=== PATIENT | male | born 1985 | race Caucasian/White ===

== ENCOUNTER 2019-08-26 10:25 | Emergency (ER) | payer MEDICAID, OTHER ==
[2019-08-26 11:04] LABS: ABS Basophils 0.1 10^3/ul (0-0.2); ABS Eosinophils 0.1 10^3/ul (0-0.6); ABS Monocytes 0.6 10^3/ul (0-0.8); ABS Neutrophils 3.3 10^3/ul (1.5-7.7); Eosinophil % 2.3 %; Hematocrit 43 % (42-52); Hemoglobin 14.8 g/dL (14.0-18.0); Lymphocyte % 33.5 %; Mean Corpuscular HGB Conc 34 g/dL (31-36); Mean Corpuscular Hemoglobin 28 pg (27-31); Mean Corpuscular Volume 81 fL (80-94); Nucleated Red Blood Cells % 0.1; Platelet Count 243 10^3/uL (150-450); Red Blood Count 5.36 10^6 /uL (4.18-5.48); Red Cell Distribution Width 14 % (10-15); White Blood Count 6.1 10^3/uL (3.5-10.8)
[2019-08-26 11:41] LABS: ALT 26 U/L (7-52); AST 18 U/L (13-39); Albumin 4.1 g/dL (3.2-5.2); Albumin/Globulin Ratio 1.3 (1-3); Alkaline Phosphatase 63 U/L (34-104); Anion Gap 7 mmol/L (2-11); Blood Urea Nitrogen 16 mg/dL (6-24); CO2 Carbon Dioxide 25 mmol/L (22-32); Calcium 9.3 mg/dL (8.6-10.3); Chloride 107 mmol/L (101-111); EGFR African American 104.1 (>60); EGFR Non-African American 86.1 (>60); Globulin 3.1 g/dL (2-4); Glucose 146 mg/dL (70-100); Potassium 3.9 mmol/L (3.5-5.0); Sodium 139 mmol/L (135-145); Total Protein 7.2 g/dL (6.4-8.9)
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
[2019-08-26 11:50] LABS: Alcohol < 10 mg/dL (<10); Salicylate < 2.50 mg/dL (<30)
[2019-08-26 11:51] LABS: Acetaminophen < 15 mcg/mL
[2019-08-26 18:30] VITALS: BP 117/78
== END 2019-08-26 18:28 | disposition home or self-care (01) ==
LOC: ED 10:25
DX: F63.9 Impulse disorder, unspecified (principal); F79 Unspecified intellectual disabilities; R47.9 Unspecified speech disturbances; H91.90 Unspecified hearing loss, unspecified ear
CPT/HCPCS: 36415; 80053; 80320; 80329; 84443; 85025; 99284; G0480

== ENCOUNTER 2022-06-06 16:02 | Inpatient (IN) ==
[2022-06-06] MEDS ORDERED: Morphine 4 MG/ML VIAL (1 ml) IV ONE (17:07)
[2022-06-06] MEDS ORDERED: Lactated Ringers 1000 ml BAG 1,000 ML IV ONE (17:08)
[2022-06-06 17:25] LABS: ABS Eosinophils 0.1 10^3/ul (0-0.6); ABS Lymphocytes 0.5 10^3/ul (1.0-4.8); ABS Monocytes 0.6 10^3/ul (0-0.8); ABS Neutrophils 2.8 10^3/ul (1.5-7.7); Eosinophil % 2.2 %; Hematocrit 35 % (42-52); Hemoglobin 11.1 g/dL (14.0-18.0); Lymphocyte % 13.1 %; Mean Corpuscular HGB Conc 32 g/dL (31-36); Mean Corpuscular Hemoglobin 25 pg (27-31); Mean Corpuscular Volume 79 fL (80-94); Mean Platelet Volume 8.9 fL (7.4-10.4); Platelet Count 280 10^3/uL (150-450); Red Cell Distribution Width 15 % (10-15); White Blood Count 4.1 10^3/uL (3.5-10.8)
[2022-06-06] MEDS ORDERED: Ondansetron 4 mg VIAL 2 MG/ML 2 ml VIAL IV ONE (17:52)
[2022-06-06 18:13] LABS: Albumin/Globulin Ratio 1.1 (1-3); C Reactive Protein 47.04 mg/L (<8.01); Calcium 11.1 mg/dL (8.6-10.3); Globulin 3.6 g/dL (2-4); Potassium 4.7 mmol/L (3.5-5.0); Total Bilirubin 0.5 mg/dL (0.2-1.0); Total Protein 7.6 g/dL (6.4-8.9); eGFR CKD-EPI 49.4 (>60)
[2022-06-06] MEDS ORDERED: Iohexol 350 (CONTRAST) 500 ML MDV IV ONE (18:28)
[2022-06-06] MEDS ORDERED: HYDROmorphone 1 MG/1 ML SYRINGE IV ONE (18:35)
[2022-06-06] MEDS ORDERED: Iodixanol (CONTRAST) 320 MG/ML 100 ML SDV IV ONE (20:31)
[2022-06-06 20:56] LABS: HCG Pregnancy 304.55 mIU/mL; Uric Acid 11.4 mg/dL (4.4-7.6)
[2022-06-06 21:23] LABS: Erythrocyte Sed Rate 102 mm/Hr (0-14)
[2022-06-06] MEDS ORDERED: Morphine 2 MG/ML SYRINGE IV PRN (21:48)
[2022-06-06] MEDS ORDERED: Lactated Ringers 1000 ml BAG 1,000 ML IV SCH (22:00)
[2022-06-07 06:36] LABS: ABS Eosinophils 0.1 10^3/ul (0-0.6); ABS Lymphocytes 0.6 10^3/ul (1.0-4.8); ABS Monocytes 0.8 10^3/ul (0-0.8); ABS Neutrophils 2.6 10^3/ul (1.5-7.7); Hematocrit 30 % (42-52); Hemoglobin 9.7 g/dL (14.0-18.0); Lymphocyte % 14.4 %; Mean Corpuscular HGB Conc 32 g/dL (31-36); Mean Corpuscular Hemoglobin 25 pg (27-31); Mean Corpuscular Volume 79 fL (80-94); Mean Platelet Volume 9.2 fL (7.4-10.4); Platelet Count 264 10^3/uL (150-450); Red Blood Count 3.84 10^6 /uL (4.18-5.48); Red Cell Distribution Width 15 % (10-15); White Blood Count 4.1 10^3/uL (3.5-10.8)
[2022-06-07 07:01] LABS: Calcium 10.1 mg/dL (8.6-10.3); Magnesium 1.5 mg/dL (1.9-2.7); Phosphorus 5.5 mg/dL (2.5-5.0); Potassium 4.9 mmol/L (3.5-5.0); eGFR CKD-EPI 47.8 (>60)
[2022-06-07] MEDS ORDERED: Lactated Ringers 1000 ml BAG 1,000 ML IV SCH (07:57)
[2022-06-07 11:32] LABS: INR 1.11 (0.89-1.11)
[2022-06-07] MEDS ORDERED: fentaNYL 100 mcg/2 ml 50 MCG/ML VIAL ONE (13:30)
[2022-06-07] MEDS ORDERED: Dextrose 50% VIAL 50 ml IV PRN (16:50)
[2022-06-07] MEDS: D5LR 1000 ml BAG 1,000 ML IV SCH (17:47)
[2022-06-07] MEDS ORDERED: Pantoprazole VIAL 40 MG VIAL IV SCH (18:00)
[2022-06-07 18:28] LABS: Hematocrit 29 % (42-52); Hemoglobin 9.1 g/dL (14.0-18.0)
[2022-06-07] MEDS: Pantoprazole VIAL 40 MG VIAL IV SCH (18:29)
[2022-06-07] MEDS: Acetaminophen IV 1 GM/100ML 1,000 MG/100 ML BAG IV PRN (21:01)
[2022-06-08] MEDS: D5LR 1000 ml BAG 1,000 ML IV SCH ×4 (00:28→22:53)
[2022-06-08] MEDS: Ondansetron 4 mg VIAL 2 MG/ML 2 ml VIAL IV PRN (03:54)
[2022-06-08 06:02] LABS: ABS Lymphocytes 0.3 10^3/ul (1.0-4.8); ABS Neutrophils 4.5 10^3/ul (1.5-7.7); Eosinophil % 0.3 %; Hematocrit 28 % (42-52); Hemoglobin 9.1 g/dL (14.0-18.0); Lymphocyte % 5.9 %; Mean Corpuscular HGB Conc 32 g/dL (31-36); Mean Corpuscular Hemoglobin 25 pg (27-31); Mean Corpuscular Volume 78 fL (80-94); Mean Platelet Volume 8.7 fL (7.4-10.4); Platelet Count 257 10^3/uL (150-450); Red Blood Count 3.62 10^6 /uL (4.18-5.48); Red Cell Distribution Width 14 % (10-15); White Blood Count 5.9 10^3/uL (3.5-10.8)
[2022-06-08 06:03] LABS: INR 1.3 (0.89-1.11)
[2022-06-08] MEDS: Acetaminophen IV 1 GM/100ML 1,000 MG/100 ML BAG IV PRN ×2 (06:06→13:19)
[2022-06-08 06:16] LABS: Anion Gap 8 mmol/L (2-11); Blood Urea Nitrogen 35 mg/dL (6-24); CO2 Carbon Dioxide 24 mmol/L (22-32); Calcium 9.5 mg/dL (8.6-10.3); Chloride 108 mmol/L (101-111); Glucose 115 mg/dL (70-100); Magnesium 1.5 mg/dL (1.9-2.7); Phosphorus 4.7 mg/dL (2.5-5.0); Potassium 4.5 mmol/L (3.5-5.0); Sodium 140 mmol/L (135-145); Total Iron Binding Capacity 216 mcg/dL (250-450); Transferrin 154 mg/dL (203-362); eGFR CKD-EPI 47.8 (>60)
[2022-06-08 06:22] LABS: % Iron Saturation 9 % (15-55); Iron < 20 ug/dL (50-212); Unsaturated Iron Binding 196 ug/dL
[2022-06-08 06:36] LABS: Ferritin 255.1 ng/mL (24-336)
[2022-06-08 06:37] LABS: LDH 1827 U/L (140-271)
[2022-06-08 06:40] LABS: Folate 7.64 ng/mL (5.90-24.80)
[2022-06-08 06:41] LABS: Vitamin B12 458 pg/mL (180-914)
[2022-06-08] MEDS ORDERED: Magnesium Sulf 4 GM/100 ML IV 4,000 MG/100 ML BAG IVPB ONE (06:56)
[2022-06-08] MEDS: Pantoprazole VIAL 40 MG VIAL IV SCH (08:55)
[2022-06-09] MEDS: D5LR 1000 ml BAG 1,000 ML IV SCH ×2 (05:42→12:42)
[2022-06-09 06:23] LABS: ABS Lymphocytes 0.6 10^3/ul (1.0-4.8); ABS Monocytes 0.9 10^3/ul (0-0.8); ABS Neutrophils 4.5 10^3/ul (1.5-7.7); Eosinophil % 0.4 %; Hematocrit 27 % (42-52); Hemoglobin 8.5 g/dL (14.0-18.0); Lymphocyte % 9.6 %; Mean Corpuscular HGB Conc 32 g/dL (31-36); Mean Corpuscular Hemoglobin 25 pg (27-31); Mean Corpuscular Volume 80 fL (80-94); Mean Platelet Volume 8.9 fL (7.4-10.4); Nucleated Red Blood Cells % 0.1; Platelet Count 237 10^3/uL (150-450); Red Blood Count 3.38 10^6 /uL (4.18-5.48); Red Cell Distribution Width 15 % (10-15)
[2022-06-09 06:36] LABS: Calcium 9.3 mg/dL (8.6-10.3); Magnesium 1.4 mg/dL (1.9-2.7); eGFR CKD-EPI 48.8 (>60)
[2022-06-09] MEDS ORDERED: Magnesium Sulfate IV 3 GM in NS 0.9% 100 ml BAG 100 ML IVPB ONE (07:26)
[2022-06-09] MEDS ORDERED: Pantoprazole VIAL 40 MG VIAL IV SCH (09:00)
[2022-06-09] MEDS: Pantoprazole VIAL 40 MG VIAL IV SCH ×2 (09:01→20:00)
[2022-06-09] MEDS ORDERED: LORazepam 2 mg VIAL 1 ml IV PUSH ONE ×2 (10:01)
[2022-06-09] MEDS ORDERED: Lorazepam PYXIS KEY PRN (10:01)
[2022-06-09 12:50] LABS: Uric Acid 9.9 mg/dL (4.4-7.6)
[2022-06-09 13:11] LABS: Hematocrit 28 % (42-52); Hemoglobin 8.9 g/dL (14.0-18.0)
[2022-06-09] MEDS ORDERED: Rasburicase 1.5 MG VIAL(NF) IVPB ONE (17:03)
[2022-06-09] MEDS ORDERED: Rasburicase 3 MG in NS 0.9% 50 ML 48 ML IVPB ONE (18:00)
[2022-06-10 07:51] LABS: ABS Eosinophils 0.1 10^3/ul (0-0.6); ABS Lymphocytes 0.5 10^3/ul (1.0-4.8); ABS Monocytes 0.7 10^3/ul (0-0.8); ABS Neutrophils 3.1 10^3/ul (1.5-7.7); Eosinophil % 1.4 %; Hematocrit 27 % (42-52); Hemoglobin 8.7 g/dL (14.0-18.0); Mean Corpuscular HGB Conc 32 g/dL (31-36); Mean Corpuscular Hemoglobin 26 pg (27-31); Mean Corpuscular Volume 79 fL (80-94); Mean Platelet Volume 9.4 fL (7.4-10.4); Platelet Count 230 10^3/uL (150-450); Red Blood Count 3.42 10^6 /uL (4.18-5.48); Red Cell Distribution Width 15 % (10-15); White Blood Count 4.4 10^3/uL (3.5-10.8)
[2022-06-10 08:22] LABS: Calcium 9.2 mg/dL (8.6-10.3); Magnesium 1.5 mg/dL (1.9-2.7); Phosphorus 3.3 mg/dL (2.5-5.0); Potassium 4.3 mmol/L (3.5-5.0); Uric Acid 4.3 mg/dL (4.4-7.6); eGFR CKD-EPI 51.8 (>60)
[2022-06-10] MEDS: Pantoprazole VIAL 40 MG VIAL IV SCH ×2 (09:55→23:44)
[2022-06-10] MEDS: Polyethylene Glycol 3350 17 GM PACKET PO SCH ×2 (15:00→23:44)
[2022-06-10] MEDS ORDERED: Iron Sucrose 200 MG in NS 0.9% 100 ml BAG 100 ML IVPB ONE (16:00)
[2022-06-10] MEDS: Ondansetron 4 mg VIAL 2 MG/ML 2 ml VIAL IV PRN (17:41)
[2022-06-10] MEDS: Acetaminophen IV 1 GM/100ML 1,000 MG/100 ML BAG IV PRN (23:44)
[2022-06-11] MEDS ORDERED: Magnesium Sulf 4 GM/100 ML IV 4,000 MG/100 ML BAG IVPB ONE (07:31)
[2022-06-11] MEDS: Polyethylene Glycol 3350 17 GM PACKET PO SCH ×2 (09:16→20:37)
[2022-06-11] MEDS: Pantoprazole VIAL 40 MG VIAL IV SCH ×2 (09:19→20:50)
[2022-06-11] MEDS: Ondansetron 4 mg VIAL 2 MG/ML 2 ml VIAL IV PRN (12:29)
[2022-06-11 12:30] LABS: Hematocrit 29 % (42-52); Hemoglobin 9.3 g/dL (14.0-18.0); Mean Corpuscular HGB Conc 32 g/dL (31-36); Mean Corpuscular Hemoglobin 25 pg (27-31); Mean Corpuscular Volume 79 fL (80-94); Mean Platelet Volume 9.1 fL (7.4-10.4); Platelet Count 298 10^3/uL (150-450); Red Blood Count 3.71 10^6 /uL (4.18-5.48); Red Cell Distribution Width 15 % (10-15); White Blood Count 4.5 10^3/uL (3.5-10.8)
[2022-06-11 12:52] LABS: Calcium 9.3 mg/dL (8.6-10.3); Magnesium 3.2 mg/dL (1.9-2.7); Phosphorus 3.9 mg/dL (2.5-5.0); Potassium 4.1 mmol/L (3.5-5.0); eGFR CKD-EPI 56.1 (>60)
[2022-06-11 23:25] LABS: Urine Color Yellow
[2022-06-11 23:26] LABS: Urine Appearance Clear; Urine Bilirubin Negative (Negative); Urine Blood Trace (Lysed) (Negative); Urine Glucose Negative (Negative); Urine Ketones 2+ (40mg/dL) (Negative); Urine Nitrite Negative (Negative); Urine Protein 1+ (30 mg/dL) (Negative); Urine Specific Gravity 1.018 (1.002-1.030); Urine Urobilinogen 0.2 (Negative) (Negative); Urine pH 5.5 (5.0-9.0)
[2022-06-11 23:42] LABS: Urine Bacteria 1+ (Absent); Urine Red Blood Cell Absent (Absent); Urine White Blood Cell Trace(0-5/hpf) (Absent)
[2022-06-12] MEDS ORDERED: Lactated Ringers 1000 ml BAG 1,000 ML IV SCH (06:00)
[2022-06-12 06:31] LABS: Calcium 8.8 mg/dL (8.6-10.3); Potassium 4.4 mmol/L (3.5-5.0); eGFR CKD-EPI 54.1 (>60)
[2022-06-12 06:52] LABS: ABS Eosinophils 0.1 10^3/ul (0-0.6); ABS Lymphocytes 0.5 10^3/ul (1.0-4.8); ABS Monocytes 0.6 10^3/ul (0-0.8); ABS Neutrophils 2.5 10^3/ul (1.5-7.7); Eosinophil % 3.4 %; Hematocrit 27 % (42-52); Hemoglobin 8.5 g/dL (14.0-18.0); Lymphocyte % 12.8 %; Mean Corpuscular HGB Conc 32 g/dL (31-36); Mean Corpuscular Hemoglobin 26 pg (27-31); Mean Corpuscular Volume 79 fL (80-94); Platelet Count 308 10^3/uL (150-450); Red Blood Count 3.35 10^6 /uL (4.18-5.48); Red Cell Distribution Width 15 % (10-15); White Blood Count 3.8 10^3/uL (3.5-10.8)
[2022-06-12 07:57] LABS: Phosphorus 3.6 mg/dL (2.5-5.0); Uric Acid 3.6 mg/dL (4.4-7.6)
[2022-06-12] MEDS: Polyethylene Glycol 3350 17 GM PACKET PO SCH ×2 (08:23→23:19)
[2022-06-12] MEDS: Pantoprazole VIAL 40 MG VIAL IV SCH ×2 (08:30→23:19)
[2022-06-12] MEDS ORDERED: Dextrose 50% VIAL 50 ml IV PRN (09:05)
[2022-06-12] MEDS ORDERED: Dexamethasone IV 4 MG/ML VIAL 1 ml VIAL ONE (10:54)
[2022-06-12] MEDS ORDERED: Succinylcholine 200 mg VIAL 20 mg/ml 10 ml VIAL (200 mg) ONE ×2 (10:54→11:03)
[2022-06-12] MEDS ORDERED: Lidocaine 2% PF 5 ML VIAL ONE (10:54)
[2022-06-12] MEDS ORDERED: Ondansetron 4 mg VIAL 2 MG/ML 2 ml VIAL ONE (10:54)
[2022-06-12] MEDS ORDERED: Propofol 10 MG/ML 20 ML BTL ONE (10:54)
[2022-06-12] MEDS ORDERED: Ondansetron 4 mg VIAL 2 MG/ML 2 ml VIAL IV PRN (10:58)
[2022-06-12] MEDS ORDERED: Naloxone 0.4 mg VIAL 0.4 mg/ml 1 ml VIAL IV PRN (10:58)
[2022-06-12] MEDS ORDERED: Rocuronium 50 mg VIAL 10 mg/ml 5 ml VIAL (50 mg) ONE (11:03)
[2022-06-12] MEDS ORDERED: Gadoteridol (CONTRAST) 279.3 MG/ML 10 ML IV ONE (12:35)
[2022-06-12] MEDS ORDERED: ceFAZolin 1 GM in Dextrose 0 GM/0 ML BAG ONE (12:37)
[2022-06-12] MEDS ORDERED: Acetaminophen IV 1 GM/100ML 1,000 MG/100 ML BAG IV ONE (12:39)
[2022-06-12] MEDS: Ondansetron 4 mg VIAL 2 MG/ML 2 ml VIAL IV PRN (23:11)
[2022-06-13] MEDS: Polyethylene Glycol 3350 17 GM PACKET PO SCH (11:47)
[2022-06-13 11:58] VITALS: BP 108/74
[2022-06-13] MEDS: Pantoprazole VIAL 40 MG VIAL IV SCH (12:26)
[2022-06-13] MEDS: Ondansetron 4 mg VIAL 2 MG/ML 2 ml VIAL IV PRN (12:26)
== END 2022-06-13 14:55 | disposition home or self-care (01) | DRG 500 ==
LOC: ED 16:02 → SUATTDRO 20:31 → EDHOLD 20:31 → MEDTELE 06-07 00:01 → SSU 06-12 16:58
PROVIDERS: ADMIT Internal Medicine; ATTEND Hospitalist
PROC: O.ANMRI (2022-06-12 12:00)

== ENCOUNTER 2022-06-29 03:08 | Inpatient (IN) ==
[2022-06-29 04:59] LABS: ALT 70 U/L (7-52); Albumin 2.2 g/dL (3.2-5.2); Albumin/Globulin Ratio 0.9 (1-3); Alkaline Phosphatase 186 U/L (35-149); Blood Urea Nitrogen 61 mg/dL (6-24); Chloride 108 mmol/L (101-111); Globulin 2.4 g/dL (2-4); Glucose 137 mg/dL (70-100); High Sens Troponin Baseline 23 pg/mL (<20); Lipase < 10 U/L (11.0-82.0); Total Protein 4.6 g/dL (6.4-8.9); eGFR CKD-EPI 36.8 (>60)
[2022-06-29 05:01] LABS: CO2 Carbon Dioxide 9 mmol/L (22-32); Sodium 133 mmol/L (135-145)
[2022-06-29] MEDS ORDERED: Lactated Ringers 1000 ml BAG 1,000 ML IV ONE ×3 (05:05→09:20)
[2022-06-29] MEDS ORDERED: Vancomycin 1,000 MG in NS 0.9% 250 ml 250 ML IVPB ONE (05:33)
[2022-06-29] MEDS ORDERED: Piperacillin/Tazobac ADVAN 3.375 GM in NS 0.9% 100 ml BAG 100 ML IV ONE (05:33)
[2022-06-29 05:49] LABS: PCO2 Arterial 25 mmHg (35-45); PO2 Arterial 108 mmHg (80-100)
[2022-06-29] MEDS: PHENYLEPHRINE DRIP IVPREMIX 50 MG/250 ML BAG IV SCH ×3 (05:58→11:34)
[2022-06-29] MEDS ORDERED: Hydrocortisone INJ 250 MG VIAL IV SCH (06:00)
[2022-06-29] MEDS ORDERED: Hydrocortisone INJ 100 MG/2ML 2 ML VIAL IV ONE (06:00)
[2022-06-29] MEDS ORDERED: Zosyn per Pharmacy NOTE FOLLOW UP SCH (06:00)
[2022-06-29] MEDS ORDERED: Norepinephrine 16MCG/ML BAGD5W 4,000 MCG/250 ML BAG IV SCH (06:00)
[2022-06-29] MEDS ORDERED: Vancomycin per Pharmacy 1 EA NOTE FOLLOW UP SCH (06:00)
[2022-06-29 06:02] LABS: INR 1.87 (0.88-1.18)
[2022-06-29 06:13] LABS: High Sensitivity Troponin 1 Hr 22 pg/mL (<20)
[2022-06-29] MEDS ORDERED: Hydrocortisone INJ 100 MG/2ML 2 ML VIAL IV SCH (06:20)
[2022-06-29 06:28] LABS: Albumin 2.1 g/dL (3.2-5.2); Albumin/Globulin Ratio 1.2 (1-3); C Reactive Protein 246.03 mg/L (<8.01); Globulin 1.7 g/dL (2-4); Magnesium 1.1 mg/dL (1.9-2.7); Phosphorus 5.2 mg/dL (2.5-5.0); Potassium 4.3 mmol/L (3.5-5.0); Total Bilirubin 0.5 mg/dL (0.2-1.0); Total Protein 3.8 g/dL (6.4-8.9); Uric Acid 2.4 mg/dL (4.4-7.6); eGFR CKD-EPI 35.2 (>60)
[2022-06-29] MEDS ORDERED: Magnesium Sulf 4 GM/100 ML IV 4,000 MG/100 ML BAG IVPB ONE (06:41)
[2022-06-29 06:58] LABS: ABS Lymphocytes 0.1 10^3/ul (1.0-4.8); Calcium 5.3 mg/dL (8.6-10.3); Eosinophil % 3.1 %; Hematocrit 26 % (42-52); Hemoglobin 8.5 g/dL (14.0-18.0); Lymphocyte % 93.1 %; Mean Corpuscular HGB Conc 33 g/dL (31-36); Mean Corpuscular Hemoglobin 25 pg (27-31); Mean Corpuscular Volume 76 fL (80-94); Mean Platelet Volume 9.4 fL (7.4-10.4); Nucleated Red Blood Cells % 2.7; Platelet Count 19 10^3/uL (150-450); Red Blood Count 3.38 10^6 /uL (4.18-5.48); Red Cell Distribution Width 14 % (10-15); White Blood Count 0.1 10^3/uL (3.5-10.8)
[2022-06-29] MEDS ORDERED: Ondansetron 4 mg VIAL 2 MG/ML 2 ml VIAL IV PRN (07:14)
[2022-06-29 07:41] LABS: Urine Appearance Slightly Cloudy; Urine Bilirubin Negative (Negative); Urine Blood Negative (Negative); Urine Color Yellow; Urine Glucose Negative (Negative); Urine Ketones Negative (Negative); Urine Nitrite Negative (Negative); Urine Protein 2+ (100 mg/dL) (Negative); Urine Urobilinogen 0.2 (Negative) (Negative); Urine pH 5.5 (5.0-9.0)
[2022-06-29] MEDS ORDERED: Succinylcholine 200 mg VIAL 20 mg/ml 10 ml VIAL (200 mg) ONE (07:46)
[2022-06-29 07:47] LABS: Urine Bacteria Absent (Absent); Urine Red Blood Cell 2+(6-10/hpf) (Absent); Urine Squamous Epithelial Cell Present (Absent); Urine White Blood Cell Trace(0-5/hpf) (Absent)
[2022-06-29] MEDS ORDERED: Propofol 10 mg/ml 100 ML BTL 100 ML ONE (07:50)
[2022-06-29] MEDS ORDERED: Norepinephrine 16MCG/ML BAGD5W 4,000 MCG/250 ML BAG IV ONE (07:50)
[2022-06-29] MEDS ORDERED: Rocuronium 50 mg VIAL 10 mg/ml 5 ml VIAL (50 mg) ONE (07:54)
[2022-06-29 07:57] VITALS: BP 76/40
[2022-06-29 08:37] LABS: Hematocrit 27 % (42-52); Hemoglobin 8.4 g/dL (14.0-18.0); Mean Corpuscular HGB Conc 32 g/dL (31-36); Mean Corpuscular Hemoglobin 25 pg (27-31); Mean Corpuscular Volume 78 fL (80-94); Mean Platelet Volume 8.6 fL (7.4-10.4); Platelet Count 18 10^3/uL (150-450); Red Blood Count 3.39 10^6 /uL (4.18-5.48); Red Cell Distribution Width 15 % (10-15); White Blood Count 0.1 10^3/uL (3.5-10.8)
[2022-06-29] MEDS ORDERED: fentaNYL 100 mcg/2 ml 50 MCG/ML VIAL IV SLOW PU PRN (08:40)
[2022-06-29 08:49] LABS: PCO2 Arterial 30 mmHg (35-45); PO2 Arterial 178 mmHg (80-100)
[2022-06-29] MEDS: Norepinephrine 16MCG/ML BAGD5W 4,000 MCG/250 ML BAG IV SCH ×3 (08:53→10:59)
[2022-06-29] MEDS ORDERED: Azithromycin 500 mg/250 ml NS 500 MG/250 ML BAG IVPB SCH (09:00)
[2022-06-29] MEDS ORDERED: Chlorhexidine MOUTHWASH 0.12% 15 ML UDC SWISH SPIT SCH (09:00)
[2022-06-29] MEDS ORDERED: Pantoprazole VIAL 40 MG VIAL IV SCH (09:00)
[2022-06-29] MEDS ORDERED: Dexmedetomidine 1,000 MCG in NS 0.9% 250 ml 240 ML IV SCH (09:00)
[2022-06-29] MEDS ORDERED: Lactated Ringers 1000 ml BAG 1,000 ML IV SCH (09:00)
[2022-06-29] MEDS ORDERED: Heparin 5000 UNITS/ML 1 mL VIAL SUBCUT SCH (09:00)
[2022-06-29] MEDS ORDERED: Etomidate 20 mg/10 ml 2 MG/ML 10 ml VIAL IV ONE (09:03)
[2022-06-29] MEDS ORDERED: Succinylcholine 200 mg VIAL 20 mg/ml 10 ml VIAL (200 mg) IV ONE (09:03)
[2022-06-29] MEDS ORDERED: Desmopressin Acetate 20 MCG in NS 0.9% 50 ML 50 ML IVPB ONE (09:40)
[2022-06-29] MEDS ORDERED: ZOSYN 3.375 GM Q8H per EXTENDED INFUSION IV SCH (10:00)
[2022-06-29] MEDS ORDERED: Propofol 10 mg/ml 100 ML BTL 100 ML IV SCH (10:00)
[2022-06-29 10:12] LABS: ABS Lymphocytes 0.1 10^3/ul (1.0-4.8); Eosinophil % 1.6 %; Lymphocyte % 90.7 %; Nucleated Red Blood Cells % 0.7
[2022-06-29] MEDS ORDERED: Sodium Bicarb 8.4% Vial 50 ML 100 MEQ in D5W 1000 ml BAG 1,000 ML IV SCH (10:30)
[2022-06-29] MEDS ORDERED: VASOPRESSIN IVPREMIX BTL 40 UNIT/100 ML BTL IV SCH (10:45)
[2022-06-29] MEDS ORDERED: Vasopressin 100 UNITS in D5W 250 ml BAG 245 ML IV SCH (10:45)
[2022-06-29] MEDS ORDERED: Sodium Bicarbonate 8.4% VIAL 1 MEQ/ML 50 ml VIAL (50 meq) ONE (10:48)
[2022-06-29] MEDS ORDERED: Sodium Bicarbonate 8.4% SYR 50 ml SYRINGE ONE ×2 (10:48→10:53)
[2022-06-29] MEDS ORDERED: Lorazepam PYXIS KEY PRN (11:36)
[2022-06-29] MEDS ORDERED: LORazepam 2 mg VIAL 1 ml IV PUSH ONE ×2 (11:36)
[2022-06-29] MEDS ORDERED: Linezolid 600 MG IVPREMIX(*) 600 MG/300 ML BAG IVPB SCH (21:00)
== END 2022-06-29 12:51 | disposition expired | DRG 720 ==
LOC: ED 04:50 → EDHOLD 05:57 → ICU 07:33
PROVIDERS: ADMIT Internal Medicine; ATTEND Internal Medicine